=== PATIENT | male | born 1980 | race Caucasian/White ===

== ENCOUNTER 2020-08-19 14:19 | Emergency (ER) | payer BC ==
[2020-08-19 14:33] VITALS: O2SAT 98
--- NOTE | 2020-08-19 14:33 | ERPHSYRPT ---
- History of Present Illness Time Seen by Provider: 08/19/20 14:32 Source: patient Exam Limitations: no limitations Physician History: This is a 39-year-old old diabetic white male with history of gout and hypothyroidism who is visiting from [place] and had symptoms of burning with urination and bilateral flank pain approximately 2 weeks ago. Approximately 1 week ago the symptoms were still present so he was given a prescription of doxycycline which he took for approximately 4 to 5 days and the symptoms were not improving so yesterday, he was told to stop the doxycycline and take Macrodantin. He took 1 days worth of that medicine and his symptoms of bilateral flank pain. Left greater than right and dysuria are still present and he is concerned that something else may be going on. Patient has not noticed any hematuria. He has had no measurable fever but he does state that he did feel as though he had some chills yesterday. He has had no nausea vomiting or diarrhea. He has no chest pain or shortness of breath. Timing/Duration: week(s) (2) Method of Injury: other (No injury) Severity of Pain-Max: moderate Severity of Pain-Current: mild Modifying Factors: Improves With: nothing Associated Symptoms: chills Previous symptoms: same symptoms as today, recently seen, recently treated Allergies/Adverse Reactions: peanut Allergy (Severe, Verified 08/19/20 14:33) anaphylaxis Home Medications: Allopurinol 300 mg [Zyloprim 300 mg] 300 mg PO DAILY 08/19/20 [History] Atorvastatin Calcium [Lipitor] 20 mg PO DAILY 08/19/20 [History] Empagliflozin [Jardiance] 10 mg PO DAILY 08/19/20 [History] Glipizide [Glipizide ER] 10 mg PO BID 08/19/20 [History] Levothyroxine Sodium [Levothyroxine] 150 mcg PO DAILY 08/19/20 [History] Metformin HCl 500 mg [Glucophage 500 MG] 1,000 mg PO BIDWM 08/19/20 [History] Travel Risk - International Travel Have you traveled outside of the country in past 3 weeks: No - Coronavirus Screening Are you exhibiting any of the following symptoms?: No Close contact with a COVID-19 positive Pt in past 14-21 Days: No - Review of Systems Constitutional: No Symptoms Eyes: No Symptoms Ears, Nose, & Throat: No Symptoms Respiratory: No Symptoms Cardiac: No Symptoms Abdominal/Gastrointestinal: No Symptoms Genitourinary Symptoms: Flank Pain (Right) Musculoskeletal: No Symptoms Skin: No Symptoms Neurological: No Symptoms Psychological: No Symptoms Endocrine: No Symptoms Hematologic/Lymphatic: No Symptoms Immunological/Allergic: No Symptoms All Other Systems: Reviewed and Negative - Past Medical History Pertinent Past Medical History: Yes Neurological History: No Pertinent History ENT History: No Pertinent History Cardiac History: No Pertinent History Respiratory History: No Pertinent History Endocrine Medical History: Diabetes Type II, Hypothyroidism Musculoskeletal History: No Pertinent History GI Medical History: No Pertinent History History: No Pertinent History Psycho-Social History: No Pertinent History Male Reproductive Disorders: No Pertinent History - Past Surgical History Past Surgical History: Yes - Nursing Vital Signs Nursing Vital Signs: Initial Vital Signs Temperature 97.7 F 08/19/20 14:26 Pulse Rate 86 08/19/20 14:26 Respiratory Rate 20 08/19/20 14:26 Blood Pressure 158/87 08/19/20 14:26 O2 Sat by Pulse Oximetry 98 08/19/20 14:26 Pain Scale Pain Intensity 6 - Physical Exam General Appearance: no apparent distress, alert, anxiety, obese Eye Exam: PERRL/EOMI Ears, Nose, Throat Exam: normal ENT inspection, moist mucous membranes Neck Exam: normal inspection, non-tender, supple, full range of motion Respiratory Exam: normal breath sounds, lungs clear, airway intact, No chest tenderness, No respiratory distress Cardiovascular Exam: regular rate/rhythm, normal heart sounds, normal peripheral pulses Gastrointestinal Exam: soft, normal bowel sounds, No tenderness Male [place] Exam: other (Dysuria) Rectal Exam: not done Back Exam: normal inspection, normal range of motion, CVA tenderness (Right), No vertebral tenderness Extremity Exam: normal inspection, normal range of motion, pelvis stable Neurologic Exam: alert, oriented x 3, cooperative, 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, normal mood/affect, nml cerebellar function, nml station & gait, sensation nml Skin Exam: normal color, warm, dry Lymphatic Exam: No adenopathy SpO2 Interpretation: normal O2 Delivery: Room Air - Course Nursing assessment & vital signs reviewed: Yes Ordered Tests: Active Orders 24 hr Category Date Time Status ABDOMEN AND PELVIS W/0 CONTRAS [CT] Stat Exams 12/22/20 15:22 Completed UA W/RFX UR CULTURE Stat Lab 08/19/20 14:48 Completed Lab/Rad Data: Laboratory Results 08/19/20 Range/Units 14:48 Urine Color YELLOW (YELLOW) Urine Appearance SLIGHTLY CLOUDY (CLEAR) Urine pH 5.0 (5-6) Ur Specific [place] 1.021 (1.005-1.025) Urine Protein 30 (Negative) Urine Ketones TRACE (NEGATIVE) Urine Blood MODERATE (0-5) Steven/ul Urine Nitrite NEGATIVE (NEGATIVE) Urine Bilirubin NEGATIVE (NEGATIVE) Urine Urobilinogen NEGATIVE (0-1) mg/dL Ur Leukocyte Esterase NEGATIVE (NEGATIVE) Urine WBC (Auto) 3-5 (0-5) /HPF Urine RBC (Auto) 26-50 (0-2) /HPF U Epithel Cells (Auto) NONE (FEW) /HPF Urine Bacteria (Auto) NONE SEEN (NEGATIVE) /HPF Urine Mucus (Auto) SLIGHT (NEGATIVE) /HPF Urine Culture Reflexed NO (NO) Urine Glucose >=500 (NEGATIVE) mg/dL - Progress Progress: improved, pain not gone completely, re-examined Progress Note: 08/19/20 15:56 CAT scan of the abdomen and pelvis without contrast reveals a distal left ureteral stone measuring approximately 3 to 4 mm. It is only partially obs tructive and there is minimal ureteral and renal inflammation/swelling. Counseled pt/family regarding: lab results, diagnosis, need for follow-up, rad results - Departure Departure Disposition: Home Clinical Impression: Left ureteral calculus Condition: Stable Critical Care Time: No Additional Instructions: Drink plenty of fluids. Stop your antibiotics. Follow-up with your primary care physician for persistent symptoms. Prescriptions: Hydrocodone/APAP 5-325 Tab^^^ [[place] 5-325 Tablet^^^] 1 tab PO Q8H PRN PRN #8 tablet MDD 3 PRN Reason: Pain Tamsulosin HCl 0.4 mg [Flomax 0.4 MG] 0.4 mg PO DAILY #7 cap
[2020-08-19 14:58] LABS: Appearance SLIGHTLY CLOUDY (CLEAR); Bilirubin NEGATIVE (NEGATIVE); Blood MODERATE Ery/ul (0-5); Glucose >=500 mg/dL (NEGATIVE); Ketones TRACE (NEGATIVE); Leukocyte Esterase NEGATIVE (NEGATIVE); Mucus SLIGHT /HPF (NEGATIVE); Nitrite NEGATIVE (NEGATIVE); Protein,Urine Dip 30 (Negative); RBC 26-50 /HPF (0-2); Specific Gravity 1.021 (1.005-1.025); Urobilinogen NEGATIVE mg/dL (0-1)
[2020-08-19 15:02] LABS: Bacteria NONE SEEN /HPF (NEGATIVE)
--- NOTE | 2020-08-19 15:44 | XRAY ---
Indication: Bilateral flank pain. Multiple contiguous axial images obtained through the abdomen and pelvis without contrast. Comparison: None Lung bases are clear. Heart is not enlarged. Small hiatal hernia. Noncontrasted stomach and bowel loops appear nonobstructed. Previous appendectomy. Mild scattered colonic diverticulosis, greatest sigmoid. There is a 3-4 mm distal left ureteral calculus, approximately 2 cm proximal to the UVJ. Proximal left ureter minimally prominent along with mild hydronephrosis consistent with partial obstructive uropathy. Nonobstructing punctate calculus in the inferior right kidney. No free fluid/air. Fatty hepatomegaly measuring 20 cm. Remaining liver, gallbladder, pancreas, spleen, adrenal glands, kidneys, ureters, bladder, and aorta are unremarkable for noncontrast exam. Osseous structures intact. Impression: 1. 3-4 mm distal left ureter calculus producing partial obstruction as detailed. Additional nonobstructing right renal micro-calculus. 2. Incidental fatty hepatomegaly, colonic diverticulosis, and small hiatal hernia.
[2020-08-19] MEDS ORDERED: NORCO 5/325 MG PO ONE (16:03)
[2020-08-19] MEDS ORDERED: MOTRIN 600 MG PO ONE (16:04)
[2020-08-19] MEDS ORDERED: NORCO 5/325 MG ONE (16:14)
[2020-08-19] MEDS ORDERED: MOTRIN 600 MG ONE (16:14)
[2020-08-19 16:19] VITALS: BP 146/82; PULSE 76
== END 2020-08-19 16:35 | disposition home or self-care (01) ==
LOC: ED 14:19
DX: N20.1 Calculus of ureter (principal)
CPT/HCPCS: 74176; 81001; 99284; A9270-GY